=== PATIENT | male | born 1980 | race Caucasian/White ===

== ENCOUNTER 2018-05-17 18:38 | Outpatient (REF) | payer MEDICAID, SELFPAY ==
[2018-05-17 19:03] LABS: Bilirubin Negative (Negative); Blood Negative (Negative); Clarity Clear; Glucose Negative (Negative); Ketones Negative (Negative); Leukocyte Esterase Negative (Negative); Nitrite Negative (Negative); Urobilinogen 0.2 EU/dL (Up TO 0.2); pH 5.5 (5-8)
== END 2018-05-17 18:58 ==
LOC: NCHCN 18:38
PROVIDERS: PCP Family Medicine; Visit Provider Nurse Practitioner Family
DX: R10.30 Lower abdominal pain, unspecified (principal)
CPT/HCPCS: 81003

== ENCOUNTER 2020-07-09 03:36 | Outpatient (CLI) | payer MEDICAID, SELFPAY ==
[2020-07-09 14:10] LABS: ALT 24 U/L (16-63); AST 15 U/L (15-37); Albumin 4.4 g/dL (3.4-5.0); Alkaline Phosphatase 57 U/L (46-116); Anion Gap 10.5 mmol/L (3-11); BUN 12 mg/dL (7-18); Bilirubin, Total 0.4 mg/dL (0.2-1.0); CO2 25.5 mmol/L (21.0-32.0); CREATININE 0.86 mg/dL (0.70-1.30); Calcium 9.1 mg/dL (8.5-10.1); Calculated LDL 174 mg/dL (<100); Chloride 100 mmol/L (98-107); Cholesterol 249 mg/dL (<200); Glucose 88 mg/dL (74-106); HDL Cholesterol 58 mg/dL (40-60); Potassium 4.2 mmol/L (3.5-5.1); Sodium 136 mmol/L (136-145); Triglyceride 88 mg/dL (<150)
[2020-07-10 09:16] LABS: HIV-1/2 Ag & Ab Screen Negative (Negative)
[2020-07-10 11:10] LABS: Syphilis Serology (RPR) Negative (Negative)
[2020-07-11 08:04] LABS: Chlamydia Result Negative (Negative); GC Result Negative (Negative)
== END 2020-07-09 03:56 ==
PROVIDERS: PCP Family Medicine; Visit Provider Family Medicine
DX: R03.0 Elevated blood-pressure reading, without diagnosis of hypertension (principal); Z11.3 Encounter for screening for infections with a predominantly sexual mode of transmission; Z11.4 Encounter for screening for human immunodeficiency virus [HIV]
CPT/HCPCS: 36415; 80053; 80061; 87389; 87491; 87591; 86592

== ENCOUNTER 2022-08-03 15:21 | Outpatient (CLI) | payer MEDICAID, SELFPAY ==
--- NOTE | 2022-08-03 15:00 | DI.RAD_ITS ---
Exam(s) XR KNEE RT 3V AP,LAT,LENIN EXAM: XR KNEE RT 3V AP,LAT,LENIN CLINICAL HISTORY: right knee f/u. TECHNIQUE: 2D digital imaging was performed. Three views. COMPARISON: No exams were available for comparison FINDINGS: BONES: No acute fracture is present. No bony destructive lesion is seen. JOINTS: The knee is normally aligned. No joint effusion is seen. Joint spaces are maintained. SOFT TISSUE: Normal. IMPRESSION: Unremarkable radiographs of the right knee. DATA REPOSITORY: RADIATION DOSE DELIVERED:
== END 2022-08-03 15:22 | disposition home or self-care (01) ==
LOC: DIORS 15:21
PROVIDERS: PCP Family Medicine; Referring Provider Family Medicine; Visit Provider Student in an Organized Health Care Education/Training Program
DX: S89.81XA Other specified injuries of right lower leg, initial encounter; M25.561 Pain in right knee; M23.8X1 Other internal derangements of right knee
CPT/HCPCS: 73562

== ENCOUNTER 2022-08-12 00:21 | Outpatient (CLI) | payer MEDICAID, SELFPAY ==
--- NOTE | 2022-08-12 07:45 | DI.MRI_ITS ---
Exam(s) MR LOWER JOINT RT WO EXAM: MR LOWER JOINT RT WO CLINICAL HISTORY: R KNEE INJURY,? meniscal tear? ligament,s89.91xa TECHNIQUE: Multiplanar multisequence MRI of the knee was performed. COMPARISON: CR XR KNEE RT 3V AP,LAT,LENIN from 08/03/2022 FINDINGS: EFFUSION: There is a large joint effusion. No Gabriel cyst. MARROW:There is bone contusion signal in the lateral tibial plateau. No evidence of actual tibial p lateau fracture. No other marrow edema. PATELLOFEMORAL COMPARTMENT: The quadriceps tendon is intact. The patellar ligament is intact. There is no significant thinning of the retropatellar cartilage. No evidence of fissure nor signific ant chondral defect. No osteochondral defect at this level.There is no intraosseous signal to sugges t recent patellar dislocation. There are no patellar retinacular tears. CRUCIATE LIGAMENTS: There is a high-grade tear of the anterior cruciate ligament.The posterior crucia te ligament is intact. MEDIAL COMPARTMENT/MEDIAL MENISCUS: There are no tears of the medial meniscus evident.. There are no chondral defects, osteochondral defects, subarticular marrow edema, nor osteophytes evid ent. MEDIAL COLLATERAL LIGAMENT: Sprain signal. No full-thickness tear. LATERAL COMPARTMENT/LATERAL MENISCUS: There is no evidence of lateral meniscal tear.There are no ermelinda dral defects, osteochondral defects, subarticular marrow edema, nor osteophytes evident. ILIOTIBIAL BAND: Intact LATERAL COLLATERAL LIGAMENT COMPLEX: The fibular collateral ligament is intact. The biceps femoris t endon is intact.Some fluid at the musculotendinous junction region of the popliteus but no high-grade tear of the popliteus tendon. IMPRESSION: 1. There is a high-grade tear of the anterior cruciate ligament. PCL is intact. 2. There are no meniscal tears. 3. There is some sprain signal related to the medial collateral ligament. No high-grade tear of this structure. 4. Mild fluid around the popliteus component of the lateral collateral ligament complex but no full-t hickness tear. The fibular collateral ligament and biceps tendon components of the LCL complex are i ntact. 5. No significant findings in the patella and retropatellar cartilage. Mild prepatellar edema noted . DATA REPOSITORY:
== END 2022-08-12 00:41 ==
LOC: DI 00:21
PROVIDERS: PCP Family Medicine; Visit Provider Student in an Organized Health Care Education/Training Program
DX: S83.511A Sprain of anterior cruciate ligament of right knee, initial encounter (principal)
CPT/HCPCS: 73721

== ENCOUNTER 2022-09-01 07:18 | Day surgery (SDC) | payer MEDICAID, SELFPAY ==
--- NOTE | 2022-08-31 18:54 | W.ANESPRE ---
General Info Date of Service Date Performed: 09/01/22 Height: 5 ft 9.5 in Weight: 81.647 kg Body Mass Index (BMI): 26.2 Surgical Procedure: Operation Date: 09/01/22 08:55 Proposed Procedure Side Surgeon p Knee ACL Reconstruction, Quadricep Allograft, any indicated Meniscal, Chondral or Synovial Surgery Right Jose Scherer MD Meds Allergies and Home Medications Allergies Allergy/AdvReac Type Severity Reaction Status Date / Time No Known Allergies Allergy Verified 08/31/22 11:23 whiskey AdvReac Unknown rash, hives Uncoded 08/31/22 11:23 Home Medication Medication Instructions Recorded multivitamin 1 tab PO DAILY 07/20/20 ascorbic acid (vitamin C) 1,000 mg 1 g PO DAILY PRN 11/30/20 tablet cetirizine 10 mg tablet (Zyrtec) 10 mg PO DAILY PRN 11/30/20 lisinopril 10 mg tablet 10 mg PO DAILY #90 tabs 08/03/22 aspirin 81 mg tablet,delayed 81 mg PO DAILY Prevent blood clot 09/01/22 release 14 days #14 tabs naproxen 250 mg tablet 250 - 500 mg PO BID PRN #40 tabs 09/01/22 oxycodone 5 mg tablet 5 - 10 mg PO Q4H PRN moderate to 09/01/22 severe pain #18 tabs Current Visit Medications: Current Medications Generic Name Dose Route Start Last Admin Trade Name Freq PRN Reason Stop Dose Admin Ringer's Solution 1,000 mls @ 30 mls/hr 09/01/22 06:00 IV 09/30/22 23:59 INFUSION VIOLETA Cefazolin Sodium/Dextrose 2 gm in 50 mls @ 100 mls/hr 09/01/22 06:00 Ancef Duplex IVPB 09/30/22 23:59 PREOP VIOLETA IV Miscellaneous Supplies 1 each 09/01/22 06:00 Iv Access IV 09/30/22 23:59 DIRECTED VIOLETA Sodium Chloride 0 ml 09/01/22 06:00 Normal Saline Flush 10 Ml Syr IV 09/30/22 23:59 PRN PRN Sodium Chloride 0 ml 09/01/22 06:00 Normal Saline 10 Ml Vial IJ 09/30/22 23:59 DIRECTED PRN Sterile Water 0 ml 09/01/22 06:00 Water,Injection,Sterile 10 Ml Vial IJ 09/30/22 23:59 DIRECTED PRN PFSH Active Problems Active Problems: Problem Status Onset Code Right ACL tear 08/02/22 S83.511A COVID U07.1 Plantar wart, right foot B07.0 Essential hypertension I10 Sinusitis J32.9 Hyperlipemia 07/09/20 E78.5 Abdominal pain, lower R10.30 Pityriasis rosea L42 Surgical History Surgical History History of vasectomy (03/25/19) Tobacco Smoking/Tobacco Use Status: Current-Occasional Tobacco Type: smokeless tobacco Alcohol Alcohol Intake: never Substance Use Substance use: Never Substance use type: does not use Vital Signs and Lab Results Vital Signs Most Recent Vital Signs in EMR: Temp Pulse Resp BP Pulse Ox 36.4 C L 75 16 134/99 H 98 09/01/22 07:35 09/01/22 07:35 09/01/22 07:35 09/01/22 07:35 09/01/22 07:35 Lab Results Blood Type / Crossmatch: No Data to Display Complete Blood Count: No Data to Display Complete Metabolic Panel: No Data to Display Liver Function Panel: No Data to Display Coagulation Panel: No Data to Display Cardiac Panel: No Data to Display Arterial Blood Gas: No Data to Display Venous Blood Gas: No Data to Display Pancreas Panel: No Data to Display Thyroid Panel: No Data to Display Infectious Disease: No Data to Display Blood Cultures: No Data to Display Toxicology Panel: No Data to Display Anesthesia Assessment and Plan Anesthesia History Personal History: No History of Anesthesia Complications Family History: No Family History of Anesthesia Complications Exercise Tolerance Exercise Tolerance: Metabolic Equivalents>4 Pertinent Negatives Pertinent Negatives: No Symptoms of GERD, No Major Cardiovascular Symptoms or Complaints and No Major Pulmonary Symptoms or Complaints Cardiac & Pulmonary Exam Cardiac Exam: Normal S1/S2 Heart Sounds Pulmonary Exam: Clear Bilateral Breath Sounds Implantable Cardiac Device Does patient have a Pacemaker or an ICD?: No Airway Exam Known Difficult Airway: No Mallampati Class: 1 Mouth Opening: Normal (> 3cm) Thyromental Distance: Greater than 3 cm Neck Range of Motion: Full ROM Neck Circumference: Normal Teeth Condition: Normal Dentition ASA Classification ASA Score: ASA 2 Emergency Case?: No NPO Status NPO Status: NPO Clears >2 hours, Solids >8 hours Anesthesia Plan Resuscitation Status: Full Code Anesthesia Technique: General Anesthesia Airway Planned: Endotracheal Tube Pain Management: Surgeon and patient request nerve block Monitors Used: Standard Monitors Preoperative Comments:: 41 yo male for ACL repair. Sig PMHx: recent COVID, HTN, chewing tobacco, Plan: michaela TSAI/Pillo
[2022-09-01] VITALS (12 sets, daily range): BP systolic 102–137; BP diastolic 36–99; PULSE 54–84; RESP 10–18; TEMP 36.3–37.1; O2SAT 95–98; BMI 26.2
--- NOTE | 2022-09-01 07:21 | W.PM.DSUDISC ---
Date of service: 09/01/22 Time of Service: 14:00 Discharge Plan Disposition Patient Disposition: Home Discharge Details Attending Provider: Jose Scherer Primary Care Provider: Enrique Patricio Home Meds and New Rx's Prescriptions: New aspirin 81 mg tablet,delayed release (DR/EC) 81 mg PO DAILY 14 Days Qty: 14 0RF oxycodone 5 mg tablet 5 - 10 mg PO Q4H MDD 30 mg PRN (Reason: moderate to severe pain) Qty: 18 0RF naproxen 250 mg tablet 250 - 500 mg PO BID PRNQty: 40 0RF Rx Instructions: take with a meal Continued lisinopril 10 mg tablet 10 mg PO DAILY Qty: 90 3RF multivitamin Tablet 1 tab PO DAILY ascorbic acid (vitamin C) 1,000 mg tablet 1 g PO DAILY PRN cetirizine [Zyrtec] 10 mg tablet 10 mg PO DAILY PRN Discharge Instructions Additional Instructions: Surgery: Right knee arthroscopy with quadriceps allograft ACL reconstruction Activity: Weightbearing as tolerated. Advance range of motion as comfort allows. No knee brace or crutches needed as soon as comfortable. It is important to restore full extension as soon as possible. Recommend elevation to minimize swelling and discomfort. Encourage ankle pumps and wiggling toes to improve circulation and reduce risk of blood clot. A physical therapy prescription will be sent electronically to start in 2 to 3 weeks. Prescriptions: Aspirin 81 mg take 1 daily to prevent a blood clot for 14 days Naproxen 250 mg take 1-2 every 12 hours with a meal as needed for moderate pain Oxycodone 5 mg take 1-2 every 4-6 hours as needed for severe pain You may use [id number] Tylenol (acetaminophen) as needed for mild pain. These pain medications may be taken all at once or in different combinations as needed. Also, recommend Colace (docusate) as a stool softener as surgery and pain medicine cause constipation. You may try [id number] diphenhydramine (Benadryl) 25-50 mg nightly as a sleep aid Dressings: Leave dressing in place for 5 days. May then remove and leave open to air or cover incisions with Band-Aids. Leave the sticky Steri-Strips in place until they fall off or remove them after you shower. May shower after 7 days. Follow-up: 10-[address] Scherer You may take off the leg compression stockings this evening at home. You may also leave them on a few days longer if you have a history of leg swelling or edema. Let us know right away if you develop any redness, drainage, fevers, chest pain, or trouble breathing. Do not drink alcohol or drive for at least 24 hours after anesthesia. Please call the office during business hours with any questions or concerns. Discharge Orders Discharge Orders: Discharge Order (Routine); Ordered 09/01/22 Ordered By: Jose Scherer DS: Diagnosis Discharge Diagnosis (1) Right ACL tear: Status: Acute
--- NOTE | 2022-09-01 07:22 | ROE_ITS ---
Date of service: 09/01/22 Time of Service: 10:00 Operative Note Operative Note DATE OF PROCEDURE: 09/01/22 PRE-OP DIAGNOSIS: Right knee: 1. ACL rupture PROCEDURE: Right knee: 1. ACL reconstruction, CPT #80341: Quadriceps allograft SURGEON: Jose Scherer [employer] CA[employer]ING MACHINE TENDER: Anna Malave ANESTHESIA TYPE: Local By Surgeon, General LMA/ETT and Primary Nerve Block Refer to Anesthesia Record ESTIMATED BLOOD LOSS: 10 TOURNIQUET TIME: 0 COMPLICATIONS: None Patient was transported to: PACU Patient's condition: stable Implants: Arthrex ACL TightRope II RT and ABS with 8x12 mm cortical button QuadLink pre-sutured quadriceps allograft: 9.5 x 65 mm Indications: Please see complete medical record for details. Findings: Exam under anesthesia: Full range of motion, grossly positive Luis, and positive pivot shift; stable varus and valgus stress Arthroscopic findings: Complete mid substance ACL disruption with remnants femoral origin and tibial insertion. Intact articular cartilage throughout. Intact medial and lateral meniscus. Intact PCL. Procedure Description: In the operating room, general anesthesia was induced. The patient was positioned supine on the operating room table. All bony prominences were well- padded. Preoperative antibiotics were administered. The knee was prepped and draped in the usual sterile fashion. The correct patient, procedure, and side of the procedure were all verified prior to incision. Exam under anesthesia was performed. 20 cc of a 50:50 mixture of bupivacaine and lidocaine containing epinephrine was infiltrated about the planned anteromedial, anterolateral, lateral distal femoral, and pretibial surgery sites. The standard high and tight anterolateral and anteromedial portals were established and a complete diagnostic arthroscopy was performed with relevant findings detailed above. A passport cannula was inserted in both the anteromedial and anterolateral portals. In the intercondylar area, the ACL remnant was removed leaving enough footprint on the femur and tibia to localize anatomic socket placement. A small notchplasty was performed to allow proper visualization of the back wall. The graft was measured and prepared on the back table. The TightRope II BTB and TightRope II ABS adjustable-loop cortical suspensory fixation implants were loaded on QuadLink pre-sutured quadriceps allograft, which measured 9.5 mm diameter on each end by 65 mm length. The femoral and tibial ends each measured fit appropriately through a 10 mm graft tube. The graft was marked at 20 mm from each end. On the ABS side, the tensioning sutures were marked and a shuttle suture was added. The graft was manually tensioned and the construct did not demonstrate any elongation. The graft was then tightly compressed in a 9 mm graft tube and covered with vancomycin soaked sponges. The femoral guide was then placed through the anterolateral portal carefully targeting the appropriate anatomic ACL origin. The outer 9 mm diameter of the guide was positioned anatomically with appropriate space between the proximal and posterior articular margins. On the lateral thigh, drill guide position and angle adjusted to about 60 degree angle to the longitudinal axis of the femur in the coronal plane and 20 degree angle to the trans-epicondylar axis in the axial plane to create the most optimal femoral socket. Knife and snap were used to open the skin and IT band and placed the drill guide on bone while maintaining appropriate position on the lateral wall. The tunnel length was noted to be used for marking and passing the femoral button. The flip cutter was then drilled to the appropriate location. The drill guide malleted 7 mm into the cortex. The remainder of the targeting guide removed. The FlipCutter was deployed to 10 mm and retrograde reaming done to a depth of 30 mm. Bony debris was removed with the shaver. The flip cutter was then closed, withdrawn, and a FiberStick used to pass a #2 FiberWire shuttle stitch, which was withdrawn out the anterolateral portal. The tibial guide was then used to target the anatomic ACL insertion through the anteromedial portal. The drill angle adjusted to 55 degrees and a pretibial inc ision made. The drill guide was placed on bone, tunnel length noted, and the flip cutter drilled to the appropriate location. The drill guide malleted 7 mm into the cortex. The remainder of the targeting guide removed. The FlipCutter was deployed to 10mm and retrograde reaming done to a depth of 30 mm. Bony debris was removed with the shaver. The flip cutter was then closed, withdrawn, and a FiberStick used to pass a #2 FiberWire shuttle stitch, which was withdrawn out the anteromedial portal. The mechanical shaver was used to remove bone debris as well as chamfer and remove soft tissue from the edges of the sockets. A femoral shuttle sutures were withdrawn out the anterior medial portal. The PassPort was removed. This portal dilated to accommodate the graft size. The graft was brought over to the knee and the femoral sutures shuttled out the lateral thigh and advanced until the button was near the far cortex. Under arthroscopic visualization with the knee slightly hyperflexed, and the button was then passed and flipped on the far cortex. Counter traction was then maintained on the tibial side of the graft while it was carefully advanced into the knee and then about 15 mm into the femoral socket. The tibial sutures were then shuttled through the tibial tunnel and passing stitch removed while carefully noting the tensioning stitches. The graft was then dunked about 15 mm into the tibial socket. An 8x12 mm ABS button was then loaded to the ABS loop and tension sutures used to bring the cortical button down to bone. The graft was advanced and then provisionally tensioned on both the femoral and tibial sides. The knee was then cycled 22 times, tensioning rechecked, and final tightening done with the knee in full extension with a moderate reverse Luis maintained. The graft position and tension were appropriate. There was no impingement in full extension. Luis exam was rocksolid, anterior drawer stable, and negative pivot shift. Femoral passing sutures were removed. Backup knots were then tied on both sides and suture tails cut. The knee and all portals were copiously irrigated and then knee drained of arthroscopic fluid. 3-0 Monocryl was used to close the portals and small incisions in a buried interrupted fashion. Mastisol, Steri-Strips, Xeroform, 4 x 4 gauze, and sterile soft roll was applied. The extremity was wrapped gently with an Gabe bandage. A soft knee immobilizer placed. The patient awoke from anesthesia without complication and was transferred to the recovery room in a stable condition.
[2022-09-01] MEDS: Lactated Ringers 1,000 ML 30 ML IV (07:55)
--- NOTE | 2022-09-01 10:01 | W.ANESNERVE ---
Nerve Block Single Injection Procedure Date and Time Date Performed: 09/01/22 Procedure Start: 09:44 Location Where Procedure Performed Procedure Location: Day Surgery Unit Reason Performed: Postoperative Analgesia Requesting Provider: Jose Scherer Timeout Performed Timeout Performed: Yes Monitoring Used ECG, Blood Pressure and SpO2 Sterility Sterility: Hand Hygiene, Surgical Cap, Surgical Mask, Sterile Gloves and Chlorhexidine Sedation Given During Procedure Sedation Given (Indicate Dose Given): Versed IV Dose:: 2 mg Patient Mental Status Patient Mental Status: Sedate with meaningful communication Nerve Block 1st Nerve Block: Laterality: Right Block Type: iPACK Ultrasound Image Saved?: Yes Needle / Catheter Used: 100mm SonoPlex II Local Anesthetic Bolus (Indicate Dose Given): Lidocaine used for local infiltration of skin and Bupivacaine 0.375% Dose:: 15 mL Additives (Indicate Dose Given): Epinephrine to make 1:200,000 (5mcg/ml) Dose:: 37 mcg and Precedex Dose:: 40 mcg Ultrasound: Sterile probe cover and gel used Nerve Stimulator: Supplement to Ultrasound use and No twitch or parasthesia noted < 0.5 mA Paresthesia: None Procedure Tolerated: No Complications Procedure Outcome: Successful Performed By: Carlos Magallanes 2nd Nerve Block: Laterality: Right Block Type: Adductor Canal Ultrasound Image Saved?: Yes Needle / Catheter Used: 100mm SonoPlex II Local Anesthetic Bolus (Indicate Dose Given): Lidocaine used for local infiltration of skin and Bupivacaine 0.375% Dose:: 10 mL Additives (Indicate Dose Given): Epinephrine to make 1:200,000 (5mcg/ml) Dose:: 25 mcg and Precedex Dose:: 26 mcg Ultrasound: Sterile probe cover and gel used Nerve Stimulator: Supplement to Ultrasound use and No twitch or parasthesia noted < 0.5 mA Paresthesia: None Procedure Tolerated: No Complications Procedure Outcome: Successful Performed By: Carlos Magallanes
[2022-09-01] MEDS: ceFAZolin 2 GM/50 ML BAG IVPB (10:05)
[2022-09-01] MEDS: EPINEPHrine 30 MG/30 ML VIAL (12:06)
[2022-09-01] MEDS: Bupivacaine 0.25% Pres-Free W/EPI 30 ML VIAL (12:07)
[2022-09-01] MEDS: HYDROmorphone 2 MG/ML SYR IVP ×2 (13:00→13:10)
[2022-09-01] MEDS: Normal Saline 10 ML VIAL IJ (13:13)
--- NOTE | 2022-09-01 13:19 | W.ANESPOSTOP ---
Postoperative Evaluation Date, Time and Location Date Performed: 09/01/22 Time Performed: 13:19 Patient Location: PACU Vital Signs Most Recent Imported Vital Signs: Most Recent Vital Signs Temp Pulse Resp BP Pulse Ox 37.1 C 69 12 108/57 L 96 09/01/22 13:15 09/01/22 13:15 09/01/22 13:15 09/01/22 13:15 09/01/22 13:15 Pain Score Most Recent Pain Score: Most Recent Pain Score Pain Level 4 09/01/22 13:15 Assessment Mental Status: Awake (Alert & Oriented to Patient Baseline) Airway and Respiratory Function: Patent airway with normal (patient baseline) respiratory exam Cardiovascular Function: Hemodynamically Stable Hydration Status: Adequately Hydrated Nausea & Vomiting: No Nausea or Vomiting Pain: Pain is Moderate or Severe Postoperative Pain Management: Pain being addressed with medication Peripheral Nerve Block: Regional nerve block not resolved at time of post operative discharge
== END 2022-09-01 15:10 | disposition home or self-care (01) ==
PROVIDERS: PCP Family Medicine; Visit Provider Student in an Organized Health Care Education/Training Program
PROC: (CPT 29888; principal; 2022-09-01 08:45)
DX: S83.511A Sprain of anterior cruciate ligament of right knee, initial encounter (principal); E78.5 Hyperlipidemia, unspecified; I10 Essential (primary) hypertension; F17.290 Nicotine dependence, other tobacco product, uncomplicated; X58.XXXA Exposure to other specified factors, initial encounter
CPT/HCPCS: 29888; 01400; 76942; J0131; J0171; J0690; J1100; J1170; J1885; J2250; J2405; J2704; J3475

== ENCOUNTER 2023-05-23 09:17 | Outpatient (CLI) | payer MEDICAID, SELFPAY ==
--- NOTE | 2023-05-23 08:30 | DI.RAD_ITS ---
Exam(s) XR KNEE RT 2V AP,LAT EXAM: XR KNEE RT 2V AP,LAT CLINICAL HISTORY: ACL tear f/u. TECHNIQUE: 2D digital imaging was performed. Three views. COMPARISON: CR XR KNEE RT 3V AP,LAT,LENIN from 08/03/2022 MR MR LOWER JOINT RT WO from 08/12/2022 FINDINGS: BONES: No acute fracture is present. No bony destructive lesion is seen. Metallic densities in the distal fibula proximal tibia related to ACL repair. JOINTS: The knee is normally aligned. No joint effusion is seen. Joint spaces are maintained. SOFT TISSUE: Normal. IMPRESSION: Unremarkable radiographs of the right knee. DATA REPOSITORY: RADIATION DOSE DELIVERED:
== END 2023-05-23 09:18 | disposition home or self-care (01) ==
LOC: DIORS 09:17
PROVIDERS: PCP Family Medicine; Visit Provider Student in an Organized Health Care Education/Training Program
DX: S83.511D Sprain of anterior cruciate ligament of right knee, subsequent encounter (principal); X58.XXXD Exposure to other specified factors, subsequent encounter
CPT/HCPCS: 73560

== ENCOUNTER 2023-06-15 10:05 | Day surgery (SDC) | payer MEDICAID, SELFPAY ==
[2023-06-15] MEDS: Bupivacaine 0.25% Pres-Free 30 ML VIAL (01:00)
--- NOTE | 2023-06-15 07:39 | W.PM.DSUDISC ---
Date of service: 06/15/23 Time of Service: 13:00 Discharge Plan Disposition Patient Disposition: Home Condition: Stable Discharge Details Attending Provider: Jose Scherer Primary Care Provider: Enrique Patricio Home Meds and New Rx's Prescriptions: Continued lisinopril 10 mg tablet 10 mg PO DAILY Qty: 90 3RF multivitamin Tablet 1 tab PO DAILY ascorbic acid (vitamin C) 1,000 mg tablet 1 g PO DAILY PRN cetirizine [Zyrtec] 10 mg tablet 10 mg PO DAILY PRN Discharge Instructions Additional Instructions: Surgery: Right knee removal of hardware Activity: Take it easy for a few days and then gradually increase activities. Recommend elevation to minimize swelling discomfort. Prescriptions: None. You may use [id number] Tylenol/acetaminophen and/or Motrin/ibuprofen or Aleve/naproxen for mild to moderate pain and discomfort Dressings: Leave dressing in place for 2-3 days. May then remove and leave open to air or cover incisions with Band-Aid. May shower right away. Change dressing if it becomes wet. No swimming until incision is healed, about 2 weeks. Follow-up: 10-[address] Scherer You may take off the leg compression stockings this evening at home. You may also leave them on a few days longer if you have a history of leg swelling or edema. Let us know right away if you develop any redness, drainage, fevers, chest pain, or trouble breathing. Please call the office during business hours with any questions or concerns. Stand Alone Forms: Leonie Greene (DSU) Discharge Orders Discharge Orders: Discharge Order (Routine); Ordered 06/15/23 Ordered By: Anna Malave DS: Diagnosis Discharge Diagnosis (1) Painful orthopaedic hardware: Status: Acute (2) Right ACL tear: Status: Acute
--- NOTE | 2023-06-15 08:13 | W.PM.OP ---
Date of service: 06/15/23 Time of Service: 12:00 Operative Note Operative Note DATE OF PROCEDURE: 06/15/23 PRE-OP DIAGNOSIS: Right knee painful hardware POST-OP DIAGNOSIS: same PROCEDURE: Right knee removal of pretibial cortical button, CPT #34989 SURGEON: Jose Scherer FURRIER DESIGNER: None None ANESTHESIA TYPE: Local By Surgeon Refer to Anesthesia Record ESTIMATED BLOOD LOSS: 1 COMPLICATIONS: None Patient was transported to: same day Patient's condition: stable Indications: Please see complete medical record for details. Procedure Description: In the operating room, the patient was positioned supine on the OR table. All bony prominences were padded. Preoperative antibiotics were administered. The correct patient, procedure, and side of the procedure were all verified prior to beginning. Local anesthesia was induced about the proximal pretibial cortical button site with 10cc of 1% lidocaine containing epinephrine The right knee was prepped and draped in the usual sterile fashion. Proper analgesia was confirmed and the small incision was reopened over the pretibial cortical button. Soft tissue swept to the sides exposing the knot stack over the cortical button. The permanent suture and knots were removed from the button and then the button was freed from surrounding soft tissues and bone surface. It was then removed as well without difficulty. Remaining suture sticking out of the healed cortical socket was cut flush with the bone. There were no signs of any healing problems. The small incision was swept and free of any prominent scar tissue or other permanent suture or debris. The small incision was thoroughly bulb irrigated. Hemostasis was appropriate. Subcutaneous tissue was closed centrally using 2-0 Monocryl. Skin was closed using 3-0 Monocryl. Skin glue applied over the incision followed by Mepilex Band-Aid. Luis exam remained stable. The patient tolerated local anesthesia without complication and was transferred out of the operating room in a stable condition.
[2023-06-15 10:08] VITALS: BP 150/93; PULSE 66; RESP 18; TEMP 36.7; O2SAT 98
[2023-06-15] MEDS: Lactated Ringers 1,000 ML 30 ML IV (10:30)
[2023-06-15] MEDS: ceFAZolin 2 GM/50 ML BAG IVPB (12:03)
[2023-06-15] MEDS: EPINEPHrine 10 MG/10 ML ML (12:16)
[2023-06-15 12:54] VITALS: BP 157/99; PULSE 63; RESP 16; TEMP 36.2; O2SAT 99
== END 2023-06-15 13:07 | disposition home or self-care (01) ==
LOC: SUR 10:05
PROVIDERS: PCP Family Medicine; Visit Provider Student in an Organized Health Care Education/Training Program
PROC: (CPT 20680; principal; 2023-06-15 11:15)
DX: T84.84XA Pain due to internal orthopedic prosthetic devices, implants and grafts, initial encounter (principal); I10 Essential (primary) hypertension
CPT/HCPCS: 20680; J0690

== ENCOUNTER 2023-08-08 09:00 | Outpatient (CLI) | payer MEDICAID, SELFPAY ==
--- NOTE | 2023-08-08 09:15 | DI.RAD_ITS ---
Exam(s) XR KNEE RT 2V AP,LAT EXAM: XR KNEE RT 2V AP,LAT CLINICAL HISTORY: RIGHT KNEE PAIN. TECHNIQUE: 2D digital imaging was performed. COMPARISON: CR XR KNEE RT 2V AP,LAT from 05/23/2023 FINDINGS: 3 views Again noted is evidence of prior ACL surgery. The metallic plate in the proximal anterior tibia is b een removed. The plate adjacent to the lateral cortex of the distal femur is unchanged. There is no evidence of fracture nor obvious joint effusion. There are no degenerative changes evide nt on these 2 weight-bearing views. No joint space narrowing. No osteophytes. Bone density normal. No osseous lesions. IMPRESSION: Previous ACL surgery. No degenerative changes. No obvious joint effusion DATA REPOSITORY: RADIATION DOSE DELIVERED:
== END 2023-08-08 09:01 | disposition home or self-care (01) ==
LOC: DIORS 09:01
PROVIDERS: PCP Family Medicine; Visit Provider Student in an Organized Health Care Education/Training Program
DX: M25.561 Pain in right knee (principal)
CPT/HCPCS: 73560

== ENCOUNTER 2024-06-24 14:56 | Emergency (ER) | payer BC, SELFPAY ==
[2024-06-24 15:00] VITALS: BP 159/99; PULSE 102; RESP 15; TEMP 36.6; O2SAT 98
--- NOTE | 2024-06-24 15:15 | DI.RAD_ITS ---
Exam(s) XR KNEE RT 3V AP,LAT,LENIN EXAM: XR KNEE RT 3V AP,LAT,LENIN CLINICAL HISTORY: R knee pain; hyperextension injury. TECHNIQUE: 2D digital imaging was performed. COMPARISON: CR XR KNEE RT 2V AP,LAT from 08/08/2023 FINDINGS: 3 views Again noted is evidence of prior ACL surgery. There is no evidence of acute fracture nor prominent joint effusion. No joint space narrowing. On t he AP view there is a small calcific density seen within the medial aspect of the medial joint space, not evident on 08/08/2023. Possibly significant. IMPRESSION: Subtle finding as above. If clinically indicated follow-up MRI can be performed DATA REPOSITORY: RADIATION DOSE DELIVERED:
--- NOTE | 2024-06-24 15:19 | ED.GENADUL_ITS ---
Discharge Plan Disposition Patient Disposition: Home Condition: Stable Discharge Details Clinical Impression: Internal derangement of right knee Primary Care Provider: Enrique Patricio ED Provider: Braydon Yee Home Meds and New Rx's Prescriptions: Continued lisinopril 10 mg tablet 10 mg PO DAILY Qty: 90 3RF multivitamin Tablet 1 tab PO DAILY ascorbic acid (vitamin C) 1,000 mg tablet 1 g PO DAILY PRN cetirizine [Zyrtec] 10 mg tablet 10 mg PO DAILY PRN Discharge Instructions Instructions: Internal Derangement of the Knee, Oxycodone Additional Instructions: You were seen in the emergency department for your right knee injury from a fall, your x-ray shows a mild calcification in the joint space possibly indicating a tear of your prior ACL graft. We are placing you in a knee immobilizer and provided you crutches, please aggressively rest, ice, compress and elevate your knee to get the swelling down. Please use therapeutic dosing of Tylenol (acetamenophen) & Advil (ibuprofen) in an alternating fashion as follows: Take 1000mg of Tylenol every 6 hours without missing doses- that is 4 times per day. Senior Living in between the Tylenol dosings, take 400-600mg of Advil also on a 6 hour schedule, that is also 4 times per day. The daily maximum dosing of Tylenol is 4000mg, and the daily maximum dosing of Advil is 2400mg. This is safe to do for weeks. Please note that some common cold medications & prescription pain medications m ay contain acetamenophen and you need to read OTC drug labels and factor that in to maximum daily dosings. -Use the to-go pack of oxycodone sparingly for breakthrough pain. I have placed you on the orthopedic follow-up list to obtain an MRI and possible surgical planning, please remain nonweightbearing until you are seen by orthopedics. Please return to the emergency department for any signs of neurovascular compromise or infection to the knee. Referrals: [facility] [Provider Group] Enrique Patricio DO [Primary Care Provider] - Discharge Data Discharge Date/Time-TO BE ENTERED AT DEPARTURE: 06/24/24 17:24 HPI General Date/Time Provider Initiated Documentation: 06/24/24 15:12 . HPI Narrative: 43 year-old male presents to ED today by POV/wheelchair, R-leg dominant, with a chief complaint of R knee injury, fell backwards off a rock wall, felt hyperextension type motion with severe knee pain afterwards with onset just prior to arrival. Patient endorses history of prior cadaver ACL graft to R knee. Quality described as very painful inside the knee, no radiation to numbness/tingling distally, calf pain, femur pain, hip pain, headstrike or LOC. Severity is described as 9/10. Palliating factors include smoked a copious dariusz unt of marijuana and took 2 Aleve post-injury. Provoking factors include nothing specific. Patient not anticoagulated. Related Data Home Medications ?Medication ?Instructions ?Recorded ?Confirmed multivitamin 1 tab PO DAILY 07/20/20 06/24/24 ascorbic acid (vitamin C) 1,000 mg 1 g PO DAILY PRN 11/30/20 06/24/24 tablet cetirizine 10 mg tablet (Zyrtec) 10 mg PO DAILY PRN 11/30/20 06/24/24 lisinopril 10 mg tablet 10 mg PO DAILY #90 tabs 08/03/22 06/24/24 Previous Rx's ?Medication ?Instructions ?Recorded lisinopril 10 mg tablet 10 mg PO DAILY #90 tabs 08/03/22 Allergies Allergy/AdvReac Type Severity Reaction Status Date / Time No Known Allergies Allergy Verified 06/24/24 15:05 General Stated Complaint: Orthopedic YOVANA: 3 Review of Systems All systems reviewed & are unremarkable except as noted in HPI and below Exam Narrative Exam Narrative: GENERAL APPEARANCE: Well-nourished, non-toxic, awake and alert, atraumatic, no acute distress. SKIN: Warm, pink, dry, intact, without rashes/lesions/ulcerations. HEAD: Normocephalic, atraumatic, normal hair distribution for gender/age. EYES: Normal conjunctiva, no exudates on lids/lashes. ENT: Nares patent, no circumoral cyanosis, no facial swelling NECK: Supple, trachea midline, painless cervical ROM. LUNGS/CHEST: Non-labored respirations, normal A/P diameter, symmetrical expansion, no chest wall deformity HEART (CV/PV): Regular rate, R dorsalis pedis pulse 2+, no peripheral edema, no JVD. ABDOMEN: Soft, non-distended, no guarding. MSK: Normal ROM, no swelling/deformity to bilateral UEs or LEs- save for R knee, moving all extremities without weakness, no cyanosis, spine midline without t enderness, normal curvature, exquisite tenderness to palpation medial knee, joint line, popliteal fossa, patella has no crepitus, no fibular head tenderness, femur stable, neurovascularly intact distal, special tests of the knee not performed due to acute pain, no deformity or ecchymosis NEURO: Mental Status AAOx4 - alert to person, place, time, events No facial droop, no forehead involvement. Motor: No focal weakness - strength 5/5 in bilateral UEs and LEs, proximal and distal, symmetric. save for R knee. Sensory: sensation intact to light touch globally. Gait NT. PSYCH: euthymic, cooperative, pleasant, appropriate speech Course Vital Signs Vital signs: Vital Signs Temperature 36.6 C 06/24/24 15:00 Pulse 102 H 06/24/24 15:00 Respiratory Rate 15 06/24/24 15:00 Blood Pressure 159/99 H 06/24/24 15:00 Pulse Oximetry 98 06/24/24 15:00 Temperature 36.6 C 06/24/24 15:00 Pulse 102 H 06/24/24 15:00 Respiratory Rate 15 06/24/24 15:00 Blood Pressure 159/99 H 06/24/24 15:00 Blood Pressure Position Sitting 06/24/24 15:00 Pulse Oximetry 98 06/24/24 15:00 Oxygen Delivery Method Room Air 06/24/24 15:00 Oxygen Flow Rate 0 06/24/24 15:00 Medical Decision Making This dictation utilizes [id number] dictation software and may contain unedited grammatical errors. 43 year-old male presents to ED today by POV/wheelchair, R-leg dominant, with a chief complaint of R knee injury, fell backwards off a rock wall, felt hyperextension type motion with severe knee pain afterwards with onset just prior to arrival. Patient endorses history of prior cadaver ACL graft to R knee. Quality described as very painful inside the knee, no radiation to numbness /tingling distally, calf pain, femur pain, hip pain, headstrike or LOC. Severity is described as 9/10. Palliating factors include smoked a copious amount of marijuana and took 2 Aleve post-injury. Provoking factors include nothing specific. Patients' medical history: Hypertension, hyperlipidemia. Family and social history: Noncontributory, self-employed. Pertinent exam findings / vital signs include exquisite tenderness to palpation medial knee, joint line, popliteal fossa, patella has no crepitus, no fibular head tenderness, femur stable, neurovascularly intact distal, special tests of the knee not performed due to acute pain. Differential / pathologies of concern include internal knee injury, fracture. Diagnostic studies of: -XR R knee. Interventions of: -Provided 1 g Tylenol, knee immob, crutches, oxycodone togo pack ED Course/Assessment/Plan: 43-year-old male presents after a fall from a rock wall with hyperextension injury to a prior ACL cadaver graft, he is right foot dominant, he feels he possibly tore his ACL again, special tests were not performed due to extreme pain even with light palpation, patient did not want any forceful evaluation of his knee, the x-ray has calcification in the joint suspicious for internal knee injury, patient prefers to perform RICE therapy at home and therapeutic dosing Tylenol and ibuprofen and keep the knee immobilized and seek outpatient MRI, is placed on Ortho follow-up list. Findings not consistent with dislocation of knee, nv compromise distally. Disposition of Internal Derangement of Right Knee. Patient verbalized understanding of the plan and return to ED criteria and engaged in shared decision making. Medical Records Medical records reviewed: Yes I reviewed the patient's medical records. Imaging Data Radiologic Study: Attestation: I personally reviewed and interpreted this imaging study as follows: Imaging: X-Ray Radiologist's impression: EXAM: XR KNEE RT 3V AP,LAT,LENIN CLINICAL HISTORY: R knee pain; hyperextension injury. TECHNIQUE: 2D digital imaging was performed. COMPARISON: CR XR KNEE RT 2V AP,LAT from 08/08/2023 FINDINGS: 3 views Again noted is evidence of prior ACL surgery. There is no evidence of acute fracture nor prominent joint effusion. No joint space narrowing. On the AP view there is a small calcific density seen within the medial aspect of the medial joint space, not evident on 08/08/2023. Possibly significant. IMPRESSION: Subtle finding as above. If clinically indicated follow-up MRI can be performed Quality:SDOH Health Related Social Needs: No Data to Display PFSH All Active Problems (Updated 06/24/24 @ 16:15 by RUMA Crabtree) Internal derangement of right knee (Acute) Painful orthopaedic hardware (Acute) Right ACL tear (Acute 08/02/22) S/P allograft reconstruction: 09/01/2022 COVID (Acute) 08/06/22 Plantar wart, right foot (Acute) Essential hypertension (Chronic) Sinusitis (Acute) Hyperlipemia (Acute 07/09/20) Abdominal pain, lower (Acute) Pityriasis rosea (Acute) Surgical History (Updated 09/14/22 @ 15:46 by RUMA Dong) History of vasectomy (03/25/19) Family History Mother Anxiety Depression Thyroid disease Father Asthma Heart disease Hypertension Testicular cancer Other Alcohol abuse Colon cancer Diabetes Substance abuse Social History Smoking/Tobacco Use Status: Former Tobacco Use Smoking risk assessment performed?: Yes Alcohol Intake: never Drug use: Never Substance use type: does not use Adopted: No Caregiver/Support person: No Foster care: No Household members: family Housing: house Do you need help understanding health information?: Never current occupation: Carpentry - Self Employed Sexually active: Yes Do you think of yourself as: straight/heterosexual Current gender identity: male What is your relationship status?: Panel score (0-1 are the most socially isolated patients): 1 What type of physical activity do you participate in: regular exercise Seatbelt use: always Drive intox or ride w/intox wagon driver: No Working smoke detector in home: Yes Fire extinguisher in home: Yes Carbon monox detector in home: Yes Do you feel safe at home: Yes Do you feel safe in your relationship?: Yes
[2024-06-24] MEDS: Acetaminophen 500 MG TAB 1000 MG PO (15:28)
[2024-06-24 16:08] VITALS: BP 157/86; PULSE 69; RESP 16; O2SAT 98
[2024-06-24 17:01] VITALS: BP 138/81; PULSE 74; RESP 18; TEMP 36.3; O2SAT 97
[2024-06-24] MEDS: oxyCODONE 5 MG TAB 25 MG PO (17:15)
== END 2024-06-24 17:24 | disposition home or self-care (01) ==
PROVIDERS: Emergency Provider Physician Assistant; PCP Family Medicine
DX: M23.8X1 Other internal derangements of right knee (principal); I10 Essential (primary) hypertension; E78.5 Hyperlipidemia, unspecified; Z87.891 Personal history of nicotine dependence
CPT/HCPCS: 73562; 99283

== ENCOUNTER 2024-07-08 01:35 | Outpatient (CLI) | payer BC, SELFPAY ==
--- NOTE | 2024-07-08 07:15 | DI.MRI_ITS ---
Exam(s) MR LOWER JOINT RT WO EXAM: MR LOWER JOINT RT WO CLINICAL HISTORY: R KNEE INJURY,rt acl tear,internal derangement rt knee, m23.91,s83.511a. TECHNIQUE: Multiplanar multisequence MRI was performed. COMPARISON: MR MR LOWER JOINT RT WO from 08/12/2022 CR XR KNEE RT 2V AP,LAT from 08/08/2023 CR XR KNEE RT 3V AP,LAT,LENIN from 06/24/2024 FINDINGS: BONES: Edema in the inferior half of the patella consistent with contusion. Edema in both posterior tibial plateaus as well as lateral femoral condyle, consistent with bone contusions. Bone defect bartolome d to anterior cruciate ligament repair in the distal femur and proximal tibia. JOINTS: A moderate-sized joint effusion is present. Articular cartilage: Patellofemoral joint: Articular cartilage is unremarkable. Medial femoral tibial joint: Articular cartilage is unremarkable. Lateral femoral tibial joint: Articular cartilage is unremarkable. LIGAMENTS/TENDONS: Anterior Cruciate: Anterior cruciate ligament repair appears completely disrupted. Posterior Cruciate: Unremarkable. Medial Collateral:Surrounding edema but no visible tear. Lateral Collateral ligament complex: Unremarkable. Extensor mechanism: Unremarkable. Medial retinaculum: Unremarkable. Lateral retinaculum: Unremarkable. Popliteus: Unremarkable. MENISCI: The medial meniscus is unremarkable. The lateral meniscus shows a large radial tear in the posterior horn with gap of approximately 5 mill imeters. MUSCLES: Unremarkable. SOFT TISSUES: Unremarkable. IMPRESSION: Disruption of anterior cruciate ligament repair. Contusions of the inferior half of the patella, lateral femoral condyle both tibial plateaus. Large radial tear in the posterior horn of the lateral meniscus. DATA REPOSITORY:
== END 2024-07-08 01:55 ==
LOC: DI 01:35
PROVIDERS: PCP Family Medicine; Visit Provider Student in an Organized Health Care Education/Training Program
DX: S83.511D Sprain of anterior cruciate ligament of right knee, subsequent encounter; X58.XXXD Exposure to other specified factors, subsequent encounter
CPT/HCPCS: 73721

== ENCOUNTER 2024-07-19 07:35 | Day surgery (SDC) | payer BC, SELFPAY ==
[2024-07-19] VITALS (34 sets, daily range): BP systolic 119–151; BP diastolic 62–94; PULSE 42–69; RESP 10–19; TEMP 36.2–37.2; O2SAT 93–98; BMI 25.2
--- NOTE | 2024-07-19 07:12 | W.PM.OP ---
Operative Note Operative Note PRE-OP DIAGNOSIS: Right knee: 1. ACL re-rupture 2. Lateral meniscus tear 3. Possible medial meniscus tear PROCEDURE: Right knee: 1. Revision ACL reconstruction, CPT #66375: Quadriceps allograft 2. Partial medial & lateral meniscectomy, CPT #67326 3. Removal of deep implants, CPT #62345: Permanent TightRope & FiberTag implants from prior femoral and tibial sockets SURGEON: Jose Scherer ADVERTISING DIRECTOR: Anna Malave ANESTHESIA TYPE: Local By Surgeon, General LMA/ETT and Primary Nerve Block Refer to Anesthesia Record ESTIMATED BLOOD LOSS: 10 TOURNIQUET TIME: 0 COMPLICATIONS: None Patient was transported to: PACU Patient's condition: stable Implants: Arthrex ACL TightRope II RT and ABS with vs 12mm concave cortical button with fiber tape internal brace QuadLink pre-sutured quadriceps allograft: 10 x69 mm Indications: Please see complete medical record for details. Findings: Exam under anesthesia: Mechanical block about 15 degrees to full extension and flexion limited to about 115 degrees. Stable varus valgus. Grossly positive Luis. Positive pivot glide. Arthroscopic findings: Flipped mechanically blocking tibial side prior ACL graft, ruptured completely through the mid to proximal substance. Smaller remnant on the femoral side. Well incorporated and healed in the bony sockets. Partial small medial meniscus root tear. Diminutive medial compartment with moderate chondromalacia and early narrowing. Intact remainder medial meniscus and stable posterior horn. Large radial posterior horn lateral meniscus tear involving the inferior 50% leaflet with the meniscus tissue on both sides displaceable and flipping like parrot-beak tears. Intact PCL. Procedure Description: In the operating room, general anesthesia was induced. The patient was positioned supine on the operating room table. All bony prominences were well-padded. Preoperative antibiotics were administered. The knee was prepped and draped in the usual sterile fashion. The correct patient, procedure, and side of the procedure were all verified prior to incision. Exam under anesthesia was performed. Local anesthetic containing epinephrine was infiltrated about the prior anteromedial, anterolateral, lateral distal femoral, and pretibial surgery sites. The previous anterolateral and anteromedial portals were reopened and a complete diagnostic arthroscopy was performed with relevant findings detailed above. A passport cannula was inserted in both the anteromedial and anterolateral portals. The medial compartment was quite challenging to access even with the patient relax. There was mild superficial fraying of a moderate area of the weightbearing aspect of the medial femoral condyle which was lightly trimmed with the torpedo shaver. Still, the posterior horn meniscal root junction was nearly impossible to visualize. The posterior horn was probed and stable the posterior horn junction through the body was clearly visualized and intact through the anterior horn. Through the notch the posteromedial compartment was encountered. There was no displaced meniscus tissue here. There was some possible partial capsular tearing but no clear ramp lesion. A small bulbous area of the white zone at the most posterior horn near the root was seen likely correlating with a chronic partial root tear. The torpedo shaver was brought through the notch to this location and used to lightly trim this bulbous area so it would not catch in the compartment. The remainder of the posterior horn and root did probe stable. The large lateral meniscus tear was then addressed in the [id number] position. Various meniscal biters were used to resect the displaceable inferior parrot-beak segments on both the medial and lateral sides. Care was taken ensure all loose fragments were removed with the mechanical shaver. Lastly the torpedo was used to contour the meniscal remnant to more stable appropriate shape and size. Back in the intercondylar area, the ACL graft remnant on both sides was resected with the larger shaver along with some permanent retained fiber tag suture material. The prior sockets appeared well-healed and the graft integrated nicely on both sides without dilation or bone loss. Notchplasty was read done for best visualization along the lateral wall and to encourage greater bone marrow expression and potential healing in the joint. The graft was measured and prepared on the back table. It was nicely larger and then the prior failed graft. The TightRope II BTB and TightRope II ABS adjustable-loop cortical suspensory fixation implants were loaded on QuadLink pre-sutured quadriceps allograft. The femoral and tibial ends each measured 10 mm. The graft was marked at 20 mm from each end. On the femoral side, an extra long fiber tape was loaded around the button to be used as an internal brace. On the ABS side, the tensioning sutures were marked and a shuttle suture was added. The graft was manually tensioned and the construct did not demonstrate any elongation. The graft was then compressed in a graft tube and covered with vancomycin soaked sponges. The femoral guide was then placed through the anterolateral portal carefully targeting the appropriate anatomic ACL origin. The outer 9 mm diameter of the guide was positioned anatomically with appropriate space between the proximal and posterior articular margins. On the lateral thigh, drill guide position and angle adjusted to about 60 degree angle to the longitudinal axis of the femur in the coronal plane and 20 degree angle to the trans-epicondylar axis in the axial plane to create the most optimal femoral socket. Knife and snap were used to reopen the skin and IT band and placed the drill guide on bone while maintaining appropriate position on the lateral wall. The tunnel length was noted to be used for marking and passing the femoral button. The flip cutter was then drilled to the appropriate location centrally in the prior socket. Drilling was more challenging as anticipated given the soft tissue graft and retained permanent suture material.. The drill guide malleted 7 mm into the cortex. The remainder of the targeting guide removed. The FlipCutter was deployed to 10 mm and retrograde reaming done to a depth of 30 mm, which took many passes as only about 5 mm of progress could be made each time prior to manually delivering the flip cutter back into the joint and using various graspers and the larger shaver to remove in piecemeal prior permanent suture material from the fiber tag prep and lastly the tight rope device itself. The socket was confirmed to been recreated nicely with fresh margins. The flip cutter struggled to close after all this graft and suture removal and it was closed using a snap as done sometimes, withdrawn, and a FiberStick used to pass a #2 FiberWire shuttle stitch, which was withdrawn out the anterolateral portal. The tibial guide was then used to target the anatomic ACL insertion through the anteromedial portal. The drill angle adjusted to 57.5 degrees and a pretibial incision made. The drill guide was placed on bone, tunnel length noted, and the flip cutter drilled to the appropriate location. The drill guide malleted 7 mm into the cortex. The remainder of the targeting guide removed. The FlipCutter was deployed to 10mm and retrograde reaming done to a depth of 30 mm. Again, this had to be done in piecemeal manually grasping shaving and removing the prior fiber tag and tight rope implants. Care was taken to ensure again the socket was thoroughly cleaned out and fresh margins were established. The graft came out and slightly bigger pieces on this side with a bit less thorough incorporation into the sockets, which did correlate with the MRI. The flip cutter was then closed, withdrawn, and a FiberStick used to pass a #2 FiberWire shuttle stitch, which was withdrawn out the anteromedial portal. The mechanical shaver was used to remove bone debris as well as chamfer and remove soft tissue from the edges of the sockets. A femoral shuttle sutures were withdrawn out the anterior medial portal. The PassPort was removed. This portal dilated to accommodate the graft size. The graft was brought over to the knee and the femoral sutures shuttled out the lateral thigh and advanced until the button was near the far cortex. Under arthroscopic visualization with the knee slightly hyperflexed, and the button was then passed and flipped on the far cortex. Counter traction was then maintained on the tibial side of the graft while it was carefully advanced into the knee and then about 15 mm into the femoral socket. The tibial sutures and internal brace were then shuttled through the tibial tunnel and passing stitch removed while carefully noting the tensioning stitches. The graft was then dunked about 15 mm into the tibial socket. A 12 mm round concave ABS button was then loaded to the ABS loop and tension sutures used to bring the cortical button down to the skin. The fiber tapes were then also loaded on the button as the internal brace. Under direct visualization taking care to avoid any impinging tissue, the button was brought down to bone. The graft was advanced nicely to about 20 mm bearing the marked end of the graft prepped equally in both socket. It was then provisionally tensioned on both the femoral and tibial sides. The knee was then cycled 22 times, tensioning rechecked, and final tightening done with the knee in full extension with a moderate reverse Luis maintained. The graft position and tension were excellent. There was no impingement in full extension. Luis exam was rock stable. Femoral passing sutures were removed. Backup knots were then tied on both sides and suture tails cut. The internal brace was then manually tied and knotted over the pretibial cortical button. The knee and all portals were copiously irrigated and then knee drained of arthroscopic fluid. 3-0 Monocryl was used to close the portals and small incisions in a buried interrupted fashion. Mastisol, Steri-Strips, Xeroform, 4 x 4 gauze, and sterile soft roll was applied. The extremity was wrapped gently with an Gabe bandage. A soft knee immobilizer placed. The patient awoke from anesthesia without complication and was transferred to the recovery room in a stable condition. Date of Procedure: 07/19/24
--- NOTE | 2024-07-19 07:16 | W.PM.DSUDISC ---
Date of service: 07/19/24 Discharge Plan Disposition Patient Disposition: Home Condition: Stable Discharge Details Attending Provider: Jose Scherer Primary Care Provider: Enrique Patricio Home Meds and New Rx's Prescriptions: New aspirin 81 mg capsule 81 mg PO DAILY 14 Days Qty: 14 0RF naproxen 250 mg tablet 250 - 500 mg PO BID PRN (Reason: moderate pain and swelling) Qty: 40 0RF oxycodone 5 mg tablet 5 - 10 mg PO .q4-6h MDD 30 mg PRN (Reason: severe pain) Qty: 18 0RF Continued lisinopril 10 mg tablet 10 mg PO DAILY Qty: 90 3RF multivitamin Tablet 1 tab PO DAILY ascorbic acid (vitamin C) 1,000 mg tablet 1 g PO DAILY PRN cetirizine [Zyrtec] 10 mg tablet 10 mg PO DAILY PRN Discharge Instructions Additional Instructions: Surgery: Right knee arthroscopy with revision ACL reconstruction (allograft) with internal brace, and partial medial & lateral meniscectomy Activity: Weightbearing as tolerated. No brace or crutches needed as soon as comfortable and stable on knee. Restore full knee extension as soon as possible. Perform early quad sets/quadriceps isometrics. Gradually increase flexion to full. Recommend elevation to minimize swelling discomfort. Encourage ankle pumps and wiggle toes to improve circulation. A physical therapy prescription will be sent electronically to begin in about 3 weeks. Avoid sports activities for about 9 months. Prescriptions: Aspirin 81 mg take 1 daily to prevent a blood clot for 14 days, starting tomorrow Naproxen 250 mg take 1-2 every 12 hours with a meal as needed for moderate pain Oxycodone 5 mg take 1-2 every 4-6 hours as needed for severe pain You may use [id number] Tylenol (acetaminophen) as needed for mild pain. These pain medications may be taken all at once or in different combinations as needed. Also, recommend Colace (docusate) as a stool softener as surgery and pain medicine cause constipation. You may try [id number] diphenhydramine (Benadryl) 25-50 mg nightly as a sleep aid Dressings: Loosen/adjust PURNIMA bandage for comfort. Leave dressing in place for 3 days. May then remove and leave open to air or cover incisions with Band-Aids. Leave the sticky Steri-Strips in place until they fall off or remove them after you shower. May shower after 5 days. Follow-up: 10-[address] Scherer You may take off the leg compression stockings this evening at home. You may also leave them on a few days longer if you have a history of leg swelling or edema. Let us know right away if you develop any redness, drainage, fevers, chest pain, or trouble breathing. Do not drink alcohol or drive for at least 24 hours after anesthesia. Please call the office during business hours with any questions or concerns. Stand Alone Forms: Anesthesia Discharge Inst., Jeannies.Nerve Block Instructions, Crutch Training Instructions, Leonie Greene (DSU) Referrals: Jose Scherer MD [ [facility] STAFF PHYSICIAN] - 07/31/24 11:00 am Discharge Orders Discharge Orders: Discharge Order (Routine); Ordered 07/19/24 Ordered By: Anna Malave DS: Diagnosis Discharge Diagnosis (1) Acute lateral meniscus tear of right knee: Status: Acute (2) Acute medial meniscus tear of right knee: Status: Acute (3) Right ACL tear: Status: Acute
[2024-07-19] MEDS: Lactated Ringers 1,000 ML 30 ML IV (08:14)
--- NOTE | 2024-07-19 08:28 | ANES.PREOP_ITS ---
General Info Date of Service Date Performed: 07/19/24 Height: 5 ft 9 in Weight: 77.5 kg Body Mass Index (BMI): 25.2 Surgical Procedure: Operation Date: 07/19/24 09:55 Proposed Procedure Side Surgeon p Knee Arthroscopy w/Revision ACL Reconstruction (Allograft) Right Jose Scherer MD Actual Procedure Side Surgeon p Knee Arthroscopy w/Revision ACL Reconstruction (Allograft) Right Jose Scherer MD Pre-Op Diagnosis Post-Op Diagnosis (1) Right ACL tear: (2) Acute lateral meniscus tear of right knee: (3) Acute medial meniscus tear of right knee: Meds Allergies and Home Medications Allergies Allergy/AdvReac Type Severity Reaction Status Date / Time No Known Allergies Allergy Verified 07/19/24 08:00 Home Medication ?Medication ?Instructions ?Recorded multivitamin 1 tab PO DAILY 07/20/20 ascorbic acid (vitamin C) 1,000 mg 1 g PO DAILY PRN 11/30/20 tablet cetirizine 10 mg tablet (Zyrtec) 10 mg PO DAILY PRN 11/30/20 lisinopril 10 mg tablet 10 mg PO DAILY #90 tabs 08/03/22 Current Visit Medications: Current Medications Generic Name Dose Route Start Last Admin Trade Name Freq PRN Reason Stop Dose Admin Ringer's Solution 1,000 mls @ 30 mls/hr 07/19/24 06:00 07/19/24 08:14 IV 07/19/24 23:59 30 mls/hr INFUSION VIOLETA Administration Cefazolin Sodium/Dextrose 2 gm in 50 mls @ 100 mls/hr 07/19/24 06:00 Ancef Duplex IVPB 07/19/24 23:59 PREOP VIOLETA Tranexamic Acid/Sodium Chloride 1,000 mg in 100 mls @ 600 mls/hr 07/19/24 06: 00 IVPB 07/19/24 23:59 PREOP VIOLETA IV Miscellaneous Supplies 1 each 07/19/24 06:00 Iv Access IV 07/19/24 23:59 DIRECTED VIOLETA Oxycodone HCl 0 mg 07/19/24 07:15 Oxycodone 5 Mg Tab PO 08/18/24 07:14 Q3H PRN PRN Pain Sodium Chloride 0 ml 07/19/24 06:00 Normal Saline Flush 10 Ml Syr IV 07/19/24 23:59 PRN PRN Sodium Chloride 0 ml 07/19/24 06:00 Normal Saline 10 Ml Vial IJ 07/19/24 23:59 DIRECTED PRN Sterile Water 0 ml 07/19/24 06:00 Water,Injection,Sterile 10 Ml Vial IJ 07/19/24 23:59 DIRECTED PRN PFSH Active Problems Active Problems: Problem Status Onset Code Acute medial meniscus tear of right knee Acute S83.241A Acute lateral meniscus tear of right knee Acute S83.281A Right ACL tear Acute 08/02/22 S83.511A COVID Acute U07.1 Plantar wart, right foot Acute B07.0 Essential hypertension Chronic I10 Sinusitis Acute J32.9 Hyperlipemia Acute 07/09/20 E78.5 Abdominal pain, lower Acute R10.30 Pityriasis rosea Acute L42 Medical History Medical History Internal derangement of right knee Painful orthopaedic hardware Surgical History Surgical History History of vasectomy (03/25/19) Tobacco Smoking/Tobacco Use Status: Current-Occasional Tobacco Type: cigarettes Alcohol Alcohol Intake: never Substance Use Substance use: Daily Substance use type: marijuana Details: 07/19/24 pt smoked marijuana at 0500 today Vital Signs and Lab Results Vital Signs Most Recent Vital Signs in EMR: Most Recent Vital Signs Temp Pulse Resp BP Pulse Ox 37.2 C 57 L 16 150/94 H 98 07/19/24 07:50 07/19/24 07:50 07/19/24 07:50 07/19/24 07:50 07/19/24 07:50 Lab Results Blood Type / Crossmatch: No Data to Display Complete Blood Count: No Data to Display Complete Metabolic Panel: No Data to Display Liver Function Panel: No Data to Display Coagulation Panel: No Data to Display Cardiac Panel: No Data to Display Arterial Blood Gas: No Data to Display Venous Blood Gas: No Data to Display Pancreas Panel: No Data to Display Thyroid Panel: No Data to Display Infectious Disease: No Data to Display Blood Cultures: No Data to Display Toxicology Panel: No Data to Display Anesthesia Assessment and Plan Anesthesia History Personal History: No History of Anesthesia Complications Family History: No Family History of Anesthesia Complications Exercise Tolerance Exercise Tolerance: Metabolic Equivalents>4 Pertinent Negatives Pertinent Negatives: No Symptoms of GERD, No Major Cardiovascular Symptoms or Complaints, No Major Pulmonary Symptoms or Complaints and No History of CVA/TIA Cardiac & Pulmonary Exam Cardiac Exam: Normal S1/S2 Heart Sounds Pulmonary Exam: Clear Bilateral Breath Sounds Implantable Cardiac Device Does patient have a Pacemaker or an ICD?: No Airway Exam Known Difficult Airway: No Mallampati Class: 1 Mouth Opening: Normal (> 3cm) Thyromental Distance: Greater than 3 cm Neck Range of Motion: Full ROM Neck Circumference: Normal Teeth Condition: Normal Dentition ASA Classification ASA Score: ASA 2 Emergency Case?: No NPO Status NPO Status: NPO Clears >2 hours, Solids >8 hours Anesthesia Plan Resuscitation Status: Full Code Anesthesia Technique: General Anesthesia Airway Planned: Endotracheal Tube Pain Management: Surgeon and patient request nerve block Monitors Used: Standard Monitors
--- NOTE | 2024-07-19 09:00 | W.ANESNERVE ---
Nerve Block Single Injection Procedure Date and Time Date Performed: 07/19/24 Procedure Start: 08:49 Location Where Procedure Performed Procedure Location: Day Surgery Unit Reason Performed: Postoperative Analgesia Requesting Provider: Jose Scherer Timeout Performed Timeout Performed: Yes Monitoring Used ECG, Blood Pressure, SpO2 and See EMR for corresponding vital signs Sterility Sterility: Hand Hygiene, Surgical Cap, Surgical Mask, Sterile Gloves, Sterile Drape/Sheet and Chlorhexidine Sedation Given During Procedure Sedation Given (Indicate Dose Given): Versed IV Dose:: 2 mg Patient Mental Status Patient Mental Status: Sedate with meaningful communication Nerve Block 1st Nerve Block: Laterality: Right Block Type: Femoral Ultrasound Image Saved?: Yes Needle / Catheter Used: 100mm SonoPlex II Local Anesthetic Bolus (Indicate Dose Given): Lidocaine used for local infiltration of skin, Injected in 3-5ml increments after negative blood aspiration, Bupivacaine 0.5% Dose:: 10 ml and Exparel Dose:: 10 ml Additives (Indicate Dose Given): None Ultrasound: Sterile probe cover and gel used Nerve Stimulator: Supplement to Ultrasound use and No twitch or parasthesia noted < 0.5 mA Paresthesia: None Procedure Tolerated: No Complications and Patient tolerated well Procedure Outcome: Successful Performed By: María Parr
[2024-07-19] MEDS: ceFAZolin 2 GM/50 ML BAG IVPB (09:28)
[2024-07-19] MEDS: TRANEXAMIC ACID/SOD. CHL. 1,000 MG/100 ML BAG 600 MG IVPB (09:40)
[2024-07-19] MEDS: Bupivacaine 0.25% Pres-Free W/EPI 30 ML VIAL (10:39)
[2024-07-19] MEDS: EPINEPHrine 10 MG/10 ML ML (12:45)
[2024-07-19] MEDS: HYDROmorphone 1 MG/ML SYR IVP ×3 (12:53→13:23)
[2024-07-19] MEDS: LORazepam 2 MG/ML VIAL 0.5 MG IVP (12:58)
[2024-07-19] MEDS: fentaNYL 100 MCG/2 ML VIAL IVP (13:36)
[2024-07-19] MEDS: oxyCODONE 5 MG TAB PO (14:49)
--- NOTE | 2024-07-19 15:15 | W.ANESPOSTOP ---
Postoperative Evaluation Date, Time and Location Date Performed: 07/19/24 Time Performed: 15:15 Patient Location: Day Surgery Unit Vital Signs Most Recent Imported Vital Signs: Most Recent Vital Signs Temp Pulse Resp BP Pulse Ox 36.6 C 53 L 16 140/65 97 07/19/24 14:25 07/19/24 14:25 07/19/24 14:25 07/19/24 14:25 07/19/24 14:25 Pain Score Most Recent Pain Score: Most Recent Pain Score Pain Level 6 07/19/24 14:25 Assessment Mental Status: Awake (Alert & Oriented to Patient Baseline) Airway and Respiratory Function: Patent airway with normal (patient baseline) respiratory exam Cardiovascular Function: Hemodynamically Stable Hydration Status: Adequately Hydrated Nausea & Vomiting: No Nausea or Vomiting Pain: Pain is Moderate or Severe Postoperative Pain Management: Pain being addressed with medication Peripheral Nerve Block: Regional nerve block not resolved at time of post operative discharge
== END 2024-07-19 16:17 | disposition home or self-care (01) ==
LOC: SUR 07:36
PROVIDERS: PCP Family Medicine; Visit Provider Student in an Organized Health Care Education/Training Program
PROC: (CPT 29888; principal; 2024-07-19 09:45)
DX: S83.511A Sprain of anterior cruciate ligament of right knee, initial encounter (principal); S83.241A Other tear of medial meniscus, current injury, right knee, initial encounter; S83.281A Other tear of lateral meniscus, current injury, right knee, initial encounter; X58.XXXA Exposure to other specified factors, initial encounter
CPT/HCPCS: 29888; 29880; 20680; 64447; J0131; J0665; J0666; J0690; J1100; J1171; J1885; J2060; J2250; J2405; J2704; J3010; J3370; J3475

== ENCOUNTER 2024-07-31 16:02 | Outpatient (CLI) | payer BC, SELFPAY ==
--- NOTE | 2024-07-31 11:30 | DI.RAD_ITS ---
Exam(s) XR ANKLE RT 2V EXAM: XR ANKLE RT 2V CLINICAL HISTORY: heel injury. TECHNIQUE: 2D digital imaging was performed. Three views. COMPARISON: No exams were available for comparison FINDINGS: BONES: No acute fracture is present. No bony destructive lesion is seen. Tiny heel spurs. JOINTS: The ankle mortise is normally aligned. Ankle joint space is maintained. SOFT TISSUE: Normal. IMPRESSION: Tiny heel spurs. No acute abnormality. DATA REPOSITORY: RADIATION DOSE DELIVERED:
== END 2024-07-31 16:03 | disposition home or self-care (01) ==
LOC: DIORS 16:02
PROVIDERS: PCP Family Medicine; Visit Provider Physician Assistant
DX: S99.921D Unspecified injury of right foot, subsequent encounter (principal); X58.XXXD Exposure to other specified factors, subsequent encounter; M77.31 Calcaneal spur, right foot
CPT/HCPCS: 73600